=== PATIENT | male | born 1960 | race Caucasian/White ===

== ENCOUNTER → 2017-03-10 | Outpatient (CLI) | payer OTHER ==
[~2017-03-10] MED LIST: ASPIRIN325 PO; CRESTOR10 MG PO; HYDROCODONE-AP1 EAC6 PO; IBUPROFEN 800800 M1 PO; LISINOPRIL10 MG PO; METFORMIN HCL500 MG PO
== END ==
LOC: M.MRI 14:47
DX: S61.511A Laceration without foreign body of right wrist, initial encounter (principal); M67.431 Ganglion, right wrist; X58.XXXA Exposure to other specified factors, initial encounter; Y93.89 Activity, other specified; Y92.89 Other specified places as the place of occurrence of the external cause; Y99.8 Other external cause status

== ENCOUNTER → 2017-06-08 | Outpatient (CLI) | payer OTHER ==
[2017-06-08 09:52] LABS: HEMATOCRIT 42.1 % (42.0-52.0); HEMOGLOBIN 14.3 gm/dL (14.0-18.0); MCH 29.6 pg (26.0-34.0); MCV 87.2 fL (80.0-100.0); MPV 7.7 fl. (7.2-11.1); RBC 4.83 mil/uL (4.50-6.00); RDW-CV 14.2 % (10.5-14.5); WBC 10.7 thou/uL (4.0-11.0)
[2017-06-08 10:04] LABS: CHOLESTEROL 160 mg/dL (<200); HDL CHOLESTEROL 44 mg/dL (>40); LDL CHOLESTEROL 75 mg/dL (<100); TC:HDL 3.6 Ratio (Not establshd); TRIGLYCERIDE 208 mg/dL (<150); VLDL 42 mg/dL (<40)
[2017-06-08 10:05] LABS: SERUM ASSESSMENT Clear
== END ==
LOC: M.LAB 09:39
PROVIDERS: Internal Medicine Cardiovascular Disease
DX: E78.00 Pure hypercholesterolemia, unspecified (principal); I10 Essential (primary) hypertension

== ENCOUNTER → 2017-06-14 | Outpatient (CLI) | payer OTHER | LOC: M.ULTRA 07:56 | DX: I71.4 Abdominal aortic aneurysm, without rupture (principal) ==

== ENCOUNTER → 2017-10-11 | Outpatient (CLI) | payer OTHER | LOC: M.MRI 14:28 | DX: S83.241A Other tear of medial meniscus, current injury, right knee, initial encounter (principal); M25.461 Effusion, right knee; M94.261 Chondromalacia, right knee; X58.XXXA Exposure to other specified factors, initial encounter; Y93.89 Activity, other specified; Y92.89 Other specified places as the place of occurrence of the external cause; Y99.8 Other external cause status ==

== ENCOUNTER → 2018-02-16 | Outpatient (CLI) | payer OTHER ==
[2018-02-16 15:14] LABS: ABSOLUTE BASOPHILS 0.1 thou/uL (0.0-0.2); ABSOLUTE EOSINOPHILS 0.1 thou/uL (0.0-0.7); ABSOLUTE MONOCYTES 0.6 thou/uL (0.0-1.2); ABSOLUTE NEUTROPHILS 5.9 thou/uL (1.6-8.1); BASOPHILS 1.3 %; EOSINOPHILS 1.3 %; HEMATOCRIT 41.5 % (42.0-52.0); HEMOGLOBIN 13.8 gm/dL (14.0-18.0); LYMPHOCYTES 22.9 %; MCHC 33.1 g/dL (28.0-37.0); MCV 90.5 fL (80.0-100.0); MONOCYTES 6.7 %; MPV 7.7 fl. (7.2-11.1); NUCLEATED RBCS 0 /100WBC; PLATELET COUNT* 153 thou/uL (150-400); POLYS 67.8 %; RBC 4.59 mil/uL (4.50-6.00); RDW-CV 14.6 % (10.5-14.5); WBC 8.7 thou/uL (4.0-11.0)
[2018-02-16 15:39] LABS: ALBUMIN 3.8 g/dL (3.4-5.0); CALCIUM 8.8 mg/dL (8.5-10.1); CREATININE 1.4 mg/dL (0.6-1.3); POTASSIUM 3.9 mmol/L (3.5-5.1); TOTAL BILIRUBIN 0.3 mg/dL (<0.1-1.0); TOTAL PROTEIN 6.9 g/dL (6.4-8.2)
[2018-02-16 23:07] LABS: GLYCOHEMOGLOBIN (HGB A1C) 6.9 % (4.8-5.6)
== END ==
LOC: M.LAB 14:43
PROVIDERS: Family Medicine
DX: I11.9 Hypertensive heart disease without heart failure (principal); I25.10 Atherosclerotic heart disease of native coronary artery without angina pectoris; R73.09 Other abnormal glucose

== ENCOUNTER → 2018-05-05 | Outpatient (CLI) | payer OTHER | LOC: M.RAD 15:51 | DX: J18.9 Pneumonia, unspecified organism (principal) ==

== ENCOUNTER → 2018-12-21 | Outpatient (CLI) | payer OTHER ==
[~2018-12-21] MED LIST changes: +TRAMADOL 50 MG50 MG PO
[2018-12-21 08:04] LABS: ABSOLUTE EOSINOPHILS 0.1 thou/uL (0.0-0.7); ABSOLUTE LYMPHOCYTES 2.3 thou/uL (0.8-5.3); ABSOLUTE MONOCYTES 0.6 thou/uL (0.0-1.2); ABSOLUTE NEUTROPHILS 6.6 thou/uL (1.6-8.1); BASOPHILS 0.1 %; EOSINOPHILS 1.3 %; HEMATOCRIT 38.6 % (42.0-52.0); HEMOGLOBIN 12.9 gm/dL (14.0-18.0); LYMPHOCYTES 23.6 %; MCH 30.9 pg (26.0-34.0); MCHC 33.6 g/dL (28.0-37.0); MONOCYTES 6.2 %; MPV 7.5 fl. (7.2-11.1); NUCLEATED RBCS 0 /100WBC; PLATELET COUNT* 179 thou/uL (150-400); POLYS 68.8 %; RBC 4.19 mil/uL (4.50-6.00); RDW-CV 16.3 % (10.5-14.5); WBC 9.7 thou/uL (4.0-11.0)
[2018-12-21 08:30] LABS: ALBUMIN 3.6 g/dL (3.4-5.0); ALKALINE PHOSPHATASE 85 U/L (46-116); ANION GAP 8 mmol/L (7-16); BUN 22 mg/dL (7-18); CALCIUM 8.7 mg/dL (8.5-10.1); CHLORIDE 99 mmol/L (98-107); CHOLESTEROL 154 mg/dL (<200); CO2 28 mmol/L (21-32); CREATININE 1.2 mg/dL (0.6-1.3); GLUCOSE 127 mg/dL (70-99); HDL CHOLESTEROL 40 mg/dL (>40); LDL CHOLESTEROL 61 mg/dL (<100); POTASSIUM 4.2 mmol/L (3.5-5.1); SGOT 25 U/L (15-37); SGPT 33 U/L (30-65); SODIUM 135 mmol/L (136-145); TC:HDL 3.9 Ratio (Not establshd); TOTAL BILIRUBIN 0.4 mg/dL (<0.1-1.0); TOTAL PROTEIN 7.3 g/dL (6.4-8.2); TRIGLYCERIDE 266 mg/dL (<150); VLDL 53 mg/dL (<40)
[2018-12-21 08:32] LABS: SERUM ASSESSMENT Clear
[2018-12-21 23:10] LABS: GLYCOHEMOGLOBIN (HGB A1C) 5.9 % (4.8-5.6)
== END ==
LOC: M.LAB 07:42
PROVIDERS: Family Medicine
DX: E11.65 Type 2 diabetes mellitus with hyperglycemia (principal); I10 Essential (primary) hypertension; E78.2 Mixed hyperlipidemia

== ENCOUNTER 2019-01-05 14:13 | Emergency (ER) | payer OTHER ==
[~2019-01-05] VITALS: Ht 182.9 cm; Wt 136.1 kg
[~2019-01-05 14:13] MED LIST changes: -TRAMADOL 50 MG50 MG PO
[2019-01-05] MEDS ORDERED: TRAMADOL 50 MG50 MG PO (15:19)
[2019-01-05 15:39] VITALS: BP 128/56
== END 2019-01-05 15:40 | disposition home or self-care (01) ==
LOC: M.ERS 14:13
DX: M25.462 Effusion, left knee (principal); M25.562 Pain in left knee; R03.0 Elevated blood-pressure reading, without diagnosis of hypertension; Z98.890 Other specified postprocedural states; Z88.0 Allergy status to penicillin

== ENCOUNTER → 2019-01-12 | Outpatient (CLI) | payer OTHER ==
[~2019-01-12] MED LIST changes: +TRAMADOL 50 MG50 MG PO
== END ==
LOC: M.MRI 11:24
DX: S83.232A Complex tear of medial meniscus, current injury, left knee, initial encounter (principal); M17.12 Unilateral primary osteoarthritis, left knee; X58.XXXA Exposure to other specified factors, initial encounter; Y93.89 Activity, other specified; Y92.89 Other specified places as the place of occurrence of the external cause; Y99.8 Other external cause status

== ENCOUNTER → 2019-01-24 | Outpatient (CLI) | payer OTHER | LOC: M.LAB 04:39 | DX: E87.6 Hypokalemia (principal); I10 Essential (primary) hypertension; F32.9 Major depressive disorder, single episode, unspecified; E78.49 Other hyperlipidemia ==

== ENCOUNTER 2019-04-01 06:32 | Emergency (ER) | payer OTHER ==
[~2019-04-01] VITALS: Ht 182.9 cm; Wt 129.3 kg
[2019-04-01] MEDS ORDERED: ZPAK PO (07:54)
[2019-04-01] MEDS ORDERED: PREDNISONE 20 M20 M1 PO (07:54)
[2019-04-01 08:04] VITALS: BP 111/66
== END 2019-04-01 08:04 | disposition home or self-care (01) ==
LOC: M.ERS 06:32
DX: J98.01 Acute bronchospasm (principal); Z88.0 Allergy status to penicillin; Z90.89 Acquired absence of other organs

== ENCOUNTER 2019-05-10 13:50 | Inpatient (IN) | payer OTHER ==
[~2019-05-10] VITALS: Ht 182.9 cm; Wt 133.4 kg
--- NOTE | ~2019-05-10 | CON ---
[address] [address] CONSULTATION Name: BASIMELSA WASHINGTON Room: [address] IN M.R.#: [id number] Admission: 05/10/19 Attend Phys: Roula Reaves MD Discharge: Date of : 62 Report #: [id number] THIS REPORT FOR: //name// cc: Ayan Boykin Russell J. DO ~ THIS REPORT FOR: //name// CC: Roula Boykin DO DICTATED BY: Carmen Lao [facility] DATE OF SERVICE: 05/11/2019 Please note at the time of this dictation, the patient was seen and physically examined by myself. REASON FOR CONSULTATION: Nausea, vomiting, diarrhea, some abdominal discomfort that has been ongoing for about 3-4 weeks with about s60-baxyv weight loss. ALLERGIES: PENICILLIN. MEDICATIONS: From home include aspirin, lisinopril, Crestor. HISTORY OF PRESENT ILLNESS: This is a 59-year-old male who presented to the Emergency Room with ongoing nausea and vomiting associated with diarrhea that he would have up to about 6 episodes a day of both nausea, vomiting and the diarrhea. He has had a decreased appetite. He denies any bright red blood or coffee-ground emesis in his vomit and diarrhea. He denies any bright red blood or any melena at this time. He denies taking any NSAIDs on a regular basis as well. He states it has been just about every time he eats or drinks that he will have the nausea and vomiting as well as the diarrhea. He states this has been ongoing for about almost 3 weeks. He did have an abscess on his buttocks that was lanced and he was placed on Bactrim, but that all was started after his symptoms started. However, they did increase, so he stopped taking the Bactrim at that time, but his symptoms persisted and seemed to have gotten worse. The patient states he did have a colonoscopy. He thinks done over at [facility], do not have those records. He thinks he had some polyps and that was done about 4 years ago. The patient otherwise states he had been eating and drinking and doing fine up until about 3 weeks ago. He states his bowels were soft and formed on a daily basis and he had no nausea or vomiting at that time. The patient still does have his gallbladder as well. PAST MEDICAL HISTORY: Coronary artery disease, hyperlipidemia, COPD requiring oxygen at night, recent cyst removed [place] [address] CONSULTATION Name: ELSA STALLWORTH Room: [address] IN .R.#: [id number] Admission: 05/10/19 Attend Phys: Roula Reaves MD Discharge: Date of : 62 Report #: [id number] PAST SURGICAL HISTORY: He had intestinal surgery at age 5, right ankle fracture, nose fractures, bilateral knee arthroscopic surgery, coronary artery bypass surgery and abdominal aneurysm stent and a tonsillectomy. FAMILY HISTORY: Negative for any GI or female cancers. SOCIAL HISTORY: He does use alcohol, a couple of drinks several times a week and he does smoke a cigar. Denies any illegal drug use. 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 REVIEW OF SYSTEMS: Twelve-point review of systems is essentially negative except what is mentioned in the HPI. PHYSICAL EXAMINATION: VITAL SIGNS: Temperature 36.7, pulse 87, respirations 22, blood pressure 110/67. HEART: Regular rate and rhythm. LUNGS: Diminished, but clear. ABDOMEN: Soft, positive bowel sounds in all 4 quadrants, which is some very minimal tenderness noted in the epigastric to right upper quadrant area. LABORATORY DATA: Hemoglobin is 11.9, white count is 8.8, platelets 189. GFR is 28. CT of the abdomen and pelvis showed a contracted gallbladder, diverticulosis throughout and a ventral hernia that is fat containing that is nonobstructing. IMPRESSION: 1. Nausea and vomiting for 3 weeks. 2. Abdominal pain, intermittent. 3. Diarrhea up to 6 times a day for the last 3 weeks, weight loss about 10 pounds. 4. Chronic kidney disease. 5. History of colon polyps, last colon about 4 years ago at [facility], O2 at night. PLAN: 1. CCK-PIPIDA today. 2. If the above is negative, we will try and get an EGD on him later today with Dr. Lara. 3. Further recommendations to be made once the above testing [place] [address] CONSULTATION Name: ELSA STALLWORTH Room: [address] IN M.R.#: [id number] Admission: 05/10/19 Attend Phys: Roula Reaves MD Discharge: Date of : 62 Report #: [id number] Thank you for allowing us to participate in this patient's care. Please do not hesitate to call with any questions in regard to this consult. By: [phone] Lara MD /marco
[~2019-05-10 13:50] MED LIST changes: +PREDNISONE 20 M20 M1 PO; +ZPAK PO
[2019-05-10 14:00] VITALS: BP 107/64
[2019-05-10 14:09] LABS: URINE BILIRUBIN NEGATIVE (Negative); URINE BLOOD 1+ (Negative); URINE CLARITY CLEAR; URINE COLOR YELLOW; URINE GLUCOSE-RANDOM NEGATIVE (Negative); URINE KETONES NEGATIVE (Negative); URINE LEUKOCYTES-REFLEX NEGATIVE (Negative); URINE NITRITE-REFLEX NEGATIVE (Negative); URINE PROTEIN 1+ (Negative); URINE SPECIFIC GRAVITY >= 1.030 (1.005-1.030); URINE UROBILINOGEN 0.2 E.U./dl (0.2-1.0)
[2019-05-10 14:27] LABS: BACTERIA-REFLEX 1-9 Few /HPF (None Seen); CASTS None Seen /LPF (None Seen); SQUAMOUS 0-3 Few /LPF (0-3); URINE RBC 0-2 Rare /HPF (0-2); URINE WBC-REFLEX 0-5 Rare /HPF (0-5)
[2019-05-10 14:28] LABS: ABSOLUTE BASOPHILS 0.1 thou/uL (0.0-0.2); ABSOLUTE EOSINOPHILS 0.1 thou/uL (0.0-0.7); ABSOLUTE LYMPHOCYTES 2.8 thou/uL (0.8-5.3); ABSOLUTE MONOCYTES 0.8 thou/uL (0.0-1.2); ABSOLUTE NEUTROPHILS 7.9 thou/uL (1.6-8.1); BASOPHILS 1.2 %; EOSINOPHILS 1.2 %; HEMOGLOBIN 12.6 gm/dL (14.0-18.0); LYMPHOCYTES 23.8 %; MCH 30.6 pg (26.0-34.0); MONOCYTES 6.8 %; MPV 7.3 fl. (7.2-11.1); NUCLEATED RBCS 0 /100WBC; PLATELET COUNT* 214 thou/uL (150-400); RBC 4.11 mil/uL (4.50-6.00); WBC 11.8 thou/uL (4.0-11.0)
[2019-05-10 14:28] LABS: CRYSTALS None Seen /LPF (None Seen)
[2019-05-10 14:43] LABS: ALBUMIN 3.6 g/dL (3.4-5.0); CALCIUM 8.8 mg/dL (8.5-10.1); CREATININE 2.7 mg/dL (0.6-1.3); POTASSIUM 4.5 mmol/L (3.5-5.1); TOTAL BILIRUBIN 0.3 mg/dL (<0.1-1.0); TOTAL PROTEIN 7.4 g/dL (6.4-8.2)
[2019-05-10 14:51] LABS: INFLUENZA A ANTIGEN Negative (Negative); INFLUENZA B ANTIGEN Negative (Negative)
--- NOTE | 2019-05-10 16:53 | EKG ---
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: DENYS : 1960 Requested By: Srikanth Disla Order Number: [id number] MD: Rojelio Quiles Measurements Intervals [place] Rate: 86 P: -13 OR: 167 QRS: 2 QRSD: 105 T: 55 QT: 374 QTc: 448 Interpretive Statements Sinus rhythm Low voltage, precordial leads No previous ECG available for comparison Electronically Signed On 05-10-2019 16:52:09 BUSINESS DEVELOPMENT ANALYST by Rojelio Quiles [email or web address] <ELECTRONICALLY SIGNED> By: Rojelio Quiles MD, [facility] 05/10/19 1652 1414 1414 Rojelio Quiles MD, [facility] /EPI
[2019-05-10 20:50] VITALS: BP 91/53
[2019-05-10 21:06] VITALS: BP 94/53
[2019-05-11 00:16] VITALS: BP 109/53
[2019-05-11] MEDS ORDERED: CIALIS5 MG PO (00:40)
[2019-05-11 04:44] VITALS: BP 110/67
[2019-05-11 05:58] LABS: HEMATOCRIT 34.8 % (42.0-52.0); HEMOGLOBIN 11.8 gm/dL (14.0-18.0); MCH 30.9 pg (26.0-34.0); MCV 90.9 fL (80.0-100.0); RBC 3.83 mil/uL (4.50-6.00); RDW-CV 15.1 % (10.5-14.5); WBC 8.8 thou/uL (4.0-11.0)
[2019-05-11 06:14] LABS: ALBUMIN 3.2 g/dL (3.4-5.0); CALCIUM 8.4 mg/dL (8.5-10.1); CREATININE 2.4 mg/dL (0.6-1.3); POTASSIUM 4.6 mmol/L (3.5-5.1); TOTAL BILIRUBIN 0.2 mg/dL (<0.1-1.0); TOTAL PROTEIN 6.8 g/dL (6.4-8.2)
[2019-05-11 08:10] VITALS: BP 108/69
[2019-05-11 16:15] VITALS: BP 113/65
[2019-05-11 20:04] VITALS: BP 94/59
[2019-05-12] VITALS (7 sets, daily range): BP systolic 87–151; BP diastolic 45–81
[2019-05-12 10:10] LABS: HEMATOCRIT 34.9 % (42.0-52.0); HEMOGLOBIN 11.6 gm/dL (14.0-18.0); MCH 30.7 pg (26.0-34.0); MCHC 33.2 g/dL (28.0-37.0); MCV 92.5 fL (80.0-100.0); MPV 7.8 fl. (7.2-11.1); RBC 3.77 mil/uL (4.50-6.00); RDW-CV 14.7 % (10.5-14.5); WBC 10.8 thou/uL (4.0-11.0)
[2019-05-12 10:20] LABS: CALCIUM 8.5 mg/dL (8.5-10.1); CREATININE 2.2 mg/dL (0.6-1.3); POTASSIUM 4.7 mmol/L (3.5-5.1)
[2019-05-13 00:36] VITALS: BP 104/61
[2019-05-13 07:53] VITALS: BP 123/71
[2019-05-13 08:00] LABS: HEMATOCRIT 32.1 % (42.0-52.0); HEMOGLOBIN 10.7 gm/dL (14.0-18.0); MCH 30.8 pg (26.0-34.0); MCHC 33.3 g/dL (28.0-37.0); MCV 92.3 fL (80.0-100.0); MPV 7.4 fl. (7.2-11.1); RBC 3.48 mil/uL (4.50-6.00); RDW-CV 14.8 % (10.5-14.5); WBC 7.2 thou/uL (4.0-11.0)
[2019-05-13 08:33] LABS: CALCIUM 8.1 mg/dL (8.5-10.1); CREATININE 1.8 mg/dL (0.6-1.3); POTASSIUM 4.5 mmol/L (3.5-5.1)
[2019-05-13 12:12] VITALS: BP 137/92
[2019-05-13 16:00] VITALS: BP 155/92
[2019-05-13 20:00] VITALS: BP 136/85
[2019-05-13 21:00] VITALS: BP 136/85
[2019-05-14 04:41] LABS: HEMATOCRIT 31.4 % (42.0-52.0); HEMOGLOBIN 10.6 gm/dL (14.0-18.0); MCH 31.2 pg (26.0-34.0); MCHC 33.8 g/dL (28.0-37.0); MCV 92.5 fL (80.0-100.0); RBC 3.4 mil/uL (4.50-6.00); RDW-CV 15.5 % (10.5-14.5); WBC 8.5 thou/uL (4.0-11.0)
[2019-05-14 05:00] LABS: CALCIUM 8.2 mg/dL (8.5-10.1); CREATININE 1.5 mg/dL (0.6-1.3); MAGNESIUM 1.5 mg/dL (1.8-2.4); POTASSIUM 4.3 mmol/L (3.5-5.1)
[2019-05-14] MEDS ORDERED: PROTONIX40 M2 PO (08:29)
[2019-05-14] MEDS ORDERED: ZOFRAN ODT4 MG PO (09:11)
[2019-05-14] MEDS ORDERED: PANTOPRAZOLE SO40 M1 PO (09:12)
[2019-05-14 10:34] VITALS: BP 142/84
[2019-05-14 10:43] VITALS: BP 111/65
--- NOTE | 2019-05-15 16:07 | PATH ---
[facility] [address] [place] [address] PATHOLOGY RPT PROCEDURE Name: SONNY STALLWORTH Room: [address] IN M.R.#: [id number] Admission: 05/10/19 Date of : 62 Discharge: 05/14/19 Report #: [id number] Path Case #: [id number] [facility] Accession Number: [id number] . 01 Material submitted: . stomach - GASTRIC BIOPSIES FOR H-PYLORI . 01 Clinical history: . For H. pylori . 02 Diagnosis: Gastric biopsies: - Mild nonspecific chronic gastritis, negative for Helicobacter pylori organisms and dysplasia. (RICARDO:tita; 05/15/2019) S 05/15/2019 1354 Local . 02 Electronically signed: . Otto Cantu MD, Pathologist NPI- [id number] . 01 Gross description: . The specimen is received in formalin, labeled "Brown, Sonny, gastric biopsies" and consists of 4 fragments of pink-fountain tissue measuring between 0.2 x 0.2 cm and 0.5 x 0.3 cm which are entirely submitted in A1. (SDY; 05/12/2019) SYU/SYU 05/12/2019 1437 Local . 02 Pathologist provided ICD-10: K29.50 . 02 CPT . 384142, V49941 Specimen Comment: A courtesy copy of this report has been sent to [phone] Specimen Comment: [phone], Specimen Comment: Report sent to ,DR CHONG / DR DURAN Performed at: [address], [place], [place] [id number] MD Ayan Mortensen MD Phone: [phone] Performed at: 02 [facility] [address], [place], [place] [id number] MD Otto Cantu MD Phone: [phone]
== END 2019-05-14 11:00 | disposition home or self-care (01) | DRG 682 ==
LOC: M.ERS 13:50 → M.TBA-ER 16:38 → M.2W 16:38 → M.ORTHSURG 05-13 15:35
PROVIDERS: Family Medicine; ADMIT Internal Medicine
PROC: 0DB68ZX Excision of Stomach, Via Natural or Artificial Opening Endoscopic, Diagnostic (ICD-10-PCS; principal; 2019-05-11)
DX: N17.1 Acute kidney failure with acute cortical necrosis (principal); K56.2 Volvulus; R65.10 Systemic inflammatory response syndrome (SIRS) of non-infectious origin without acute organ dysfunction; N18.9 Chronic kidney disease, unspecified; F17.210 Nicotine dependence, cigarettes, uncomplicated; I95.9 Hypotension, unspecified; I25.10 Atherosclerotic heart disease of native coronary artery without angina pectoris; J44.9 Chronic obstructive pulmonary disease, unspecified; K29.70 Gastritis, unspecified, without bleeding; K26.9 Duodenal ulcer, unspecified as acute or chronic, without hemorrhage or perforation; Z88.0 Allergy status to penicillin; Z87.81 Personal history of (healed) traumatic fracture; Z95.1 Presence of aortocoronary bypass graft; Z86.010 Personal history of colon polyps; Z79.82 Long term (current) use of aspirin; Z79.899 Other long term (current) drug therapy

== ENCOUNTER 2019-06-15 09:47 | Inpatient (IN) | payer OTHER ==
[~2019-06-15] VITALS: Ht 182.9 cm; Wt 139.4 kg
[~2019-06-15 09:47] MED LIST changes: +ASPIR 8181 MG PO; -ASPIRIN325 PO; +CIALIS5 MG PO; +PANTOPRAZOLE SO40 M1 PO; +PROTONIX40 M2 PO; +ZOFRAN ODT4 MG PO
[2019-06-15 10:13] VITALS: BP 111/76
[2019-06-15] MEDS ORDERED: LISINOPRIL-HCT1 EAC2 PO (10:19)
[2019-06-15 10:44] LABS: HEMATOCRIT 34.9 % (42.0-52.0); HEMOGLOBIN 11.8 gm/dL (14.0-18.0); MCH 30.9 pg (26.0-34.0); MCHC 33.9 g/dL (28.0-37.0); MPV 7.9 fl. (7.2-11.1); RBC 3.84 mil/uL (4.50-6.00); RDW-CV 14.9 % (10.5-14.5); WBC 8.1 thou/uL (4.0-11.0)
[2019-06-15 10:55] LABS: APTT 32.2 Seconds (25.0-31.3); INR 1.1; PROTIME 11.6 Seconds (9.20-11.50)
[2019-06-15 11:00] LABS: ALBUMIN 3.4 g/dL (3.4-5.0); CALCIUM 8.4 mg/dL (8.5-10.1); CREATININE 1.9 mg/dL (0.6-1.3); POTASSIUM 4.3 mmol/L (3.5-5.1); TOTAL BILIRUBIN 0.3 mg/dL (<0.1-1.0); TOTAL PROTEIN 7.1 g/dL (6.4-8.2)
[2019-06-15 12:10] VITALS: BP 108/75
--- NOTE | 2019-06-15 12:10 | EKG ---
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
[2019-06-15 17:03] VITALS: BP 111/64
[2019-06-15 20:00] VITALS: BP 90/50
[2019-06-15 22:00] VITALS: BP 97/65
[2019-06-16] VITALS (7 sets, daily range): BP systolic 89–115; BP diastolic 43–64
--- NOTE | 2019-06-16 09:31 | EKG ---
[place] [address] ELECTROCARDIOGRAM REPORT Name: BASIMELSA PADMINI Room: [address] ADM IN M.R.#: [id number] Admission: 06/15/19 Attend Phys: Luis Horn, Discharge: Date of : 62 Date of Service: 06/16/19812 Report #: [id number] THIS REPORT FOR: //name// [facility] Test Date: 2019-06-16 Test Time: 08:13:07 Pat Name: ELSA STALLWORTH Department: Room: [address] Gender: M Wood Buffer: : 1960 Requested By: Luis oHrn Order Number: [id number] Reading MD: Rojelio Quiles Measurements Intervals [place] Rate: 65 P: -3 ME: 180 QRS: 16 QRSD: 120 T: 61 QT: 457 QTc: 476 Interpretive Statements Sinus rhythm low voltage Nonspecific intraventricular conduction delay Compared to ECG 06/15/2019 10:32:15 Electronically Signed On 06-16-2019 9:30:28 CDT by Rojelio Quiles [email or web address] <ELECTRONICALLY SIGNED> By: Rojelio Quiles MD, [facility] 06/16/1930 2 2 Rojelio Quiles MD, [facility] /EPI
[2019-06-17] VITALS: BP 87/50
[2019-06-17 04:59] VITALS: BP 81/42
[2019-06-17 08:00] VITALS: BP 99/64
[2019-06-17 10:07] VITALS: BP 88/54
[2019-06-17] MEDS ORDERED: SOTALOL80 MG PO (11:28)
[2019-06-17] MEDS ORDERED: FUROSEMIDE 20 M20 MG PO (11:30)
[2019-06-17] MEDS ORDERED: XARELTO20 MG PO (11:34)
--- NOTE | 2019-06-18 10:20 | D ---
[facility] [address] [place] [address] DISCHARGE SUMMARY Name: ELSA STALLWORTH Room: [address] IN M.R.#: [id number] Admission: 06/15/19 Attend Phys: Luis Horn MD Discharge: 06/17/19 Date of : 62 Report #: [id number] THIS REPORT FOR: //name// cc: Ayan Boykin Russell J. DO THIS REPORT FOR: //name// CC: Luis Boykin DO DATE OF SERVICE: 06/17/2019 DISCHARGE DIAGNOSES: 1. Paroxysmal atrial fibrillation. 2. Coronary artery disease. 3. Hypertension. 4. Hyperlipidemia. 5. History of an abdominal aortic aneurysm treated by stent placement. PROCEDURES: None. CONSULTATIONS: None. HISTORY OF PRESENT ILLNESS: The patient is a 59-year-old white male who was admitted for initiation of sotalol therapy. The patient has an extensive past medical history. He had coronary artery bypass surgery in 2007 at [facility]. Recently, he has been followed by my partner, Dr. Horn. He underwent placement of an abdominal aortic aneurysm stent graft about 5 years ago. Recently, he noticed occasional chest discomfort and fluttering in his heart. He was seen by Dr. Horn in the Cardiology Clinic on 05/22/2019. He wore a monitor that showed episodes of atrial fibrillation. He underwent a nuclear stress test showed ejection fraction 54% with evidence of previous inferior infarction, but no ischemia. He was electively admitted this time for initiation of sotalol therapy. He has had no bleeding or syncope. PAST MEDICAL HISTORY: Otherwise significant for no other surgical procedures. He does have a history of hypertension, hyperlipidemia, sleep apnea. MEDICATIONS: Include aspirin, Lasix as needed, lisinopril, HCT, Toprol, Crestor, Cialis as needed. PHYSICAL EXAMINATION: VITAL SIGNS: Blood pressure is 130/70, pulse is 80. CHEST: Clear to auscultation. CARDIAC: [place] [address] DISCHARGE SUMMARY Name: ELSA STALLWORTH Room: [address]#: [id number] Admission: 06/15/19 Attend Phys: Luis Horn MD Discharge: 06/17/19 Date of : 62 Report #: [id number] ABDOMEN: Soft. EXTREMITIES: Had trace edema. SKIN: Warm and dry. DIAGNOSTIC DATA: His ECG on admission showed a sinus rhythm with no QT prolongation. LABORATORY DATA: On admission, sodium 136, potassium 4.3, BUN 25, creatinine was 1.9. Liver function studies were normal. Creatinine clearance is 37. His white blood cell count 8.1, hemoglobin 11.8. HOSPITAL COURSE: The patient was admitted to monitored bed. He was started on sotalol 80 mg every 12 hours. He developed low blood pressure, was taken off of lisinopril. He was started on Xarelto for anticoagulation. He had no bleeding problems. At time of discharge, he had no significant complaints. At the time of discharge, his blood pressure is only 90/60 with pulse 70 and regular, afebrile. Followup ECG showed no significant prolongation of his QT interval. He was discharged on his home medications include aspirin, which was decreased to only 81 mg a day, Lasix 20 mg as needed for edema. He was taken off of lisinopril, HCTZ because of low blood pressure. He was switched from metoprolol to sotalol 80 mg every 12 hours. If his creatinine clearance remains less than 50, I would suggest decreasing sotalol to every 24 hours. He was to continue Crestor 40 mg a day. He has oxygen at bedtime. He was discharged to return to care of Dr. Ayan Boykin for routine medical care. He is scheduled to return to see my nurse practitioner in 1 week. He will see Dr. Horn in 8 weeks for followup. He is felt to have a good prognosis from cardiac standpoint. He was given a release to return to work in 2 days where he works here at [employer] in [employer]. <ELECTRONICALLY SIGNED> By: Rojelio Quiles MD, [facility] 06/18/19 1020 1056 [id number] Quiles MD, FACC /nt
== END 2019-06-17 11:59 | disposition home or self-care (01) | DRG 309 ==
LOC: M.2W 09:47
PROVIDERS: ADMIT Internal Medicine Cardiovascular Disease
DX: I48.0 Paroxysmal atrial fibrillation (principal); D68.59 Other primary thrombophilia; I25.10 Atherosclerotic heart disease of native coronary artery without angina pectoris; I10 Essential (primary) hypertension; E78.5 Hyperlipidemia, unspecified; G47.33 Obstructive sleep apnea (adult) (pediatric); Z79.899 Other long term (current) drug therapy

== ENCOUNTER → 2019-06-26 | Outpatient (CLI) | payer OTHER ==
[~2019-06-26] MED LIST changes: +FUROSEMIDE 20 M20 MG PO; +LISINOPRIL-HCT1 EAC2 PO; +SOTALOL80 MG PO; +XARELTO20 MG PO
== END ==
LOC: M.LAB 09:01
DX: Z11.59 Encounter for screening for other viral diseases (principal); Z20.828 Contact with and (suspected) exposure to other viral communicable diseases

== ENCOUNTER → 2019-06-29 | Outpatient (CLI) | payer OTHER ==
[2019-06-29 11:50] LABS: CALCIUM 8.2 mg/dL (8.5-10.1); CREATININE 1.3 mg/dL (0.6-1.3); POTASSIUM 4.3 mmol/L (3.5-5.1)
== END ==
LOC: M.LAB 11:05
PROVIDERS: Registered Nurse
DX: N28.9 Disorder of kidney and ureter, unspecified (principal); I25.10 Atherosclerotic heart disease of native coronary artery without angina pectoris

== ENCOUNTER 2019-07-06 10:15 | Observation (INO) | payer OTHER ==
[~2019-07-06] VITALS: Ht 182.9 cm; Wt 142.0 kg
[2019-07-06] VITALS (14 sets, daily range): BP systolic 96–150; BP diastolic 53–86
[~2019-07-06 10:15] MED LIST changes: -CRESTOR10 MG PO; +CRESTOR40 MG PO
[2019-07-06 10:44] LABS: HEMATOCRIT 37.4 % (42.0-52.0); HEMOGLOBIN 12.7 gm/dL (14.0-18.0); MCH 30.7 pg (26.0-34.0); MCHC 33.9 g/dL (28.0-37.0); MCV 90.7 fL (80.0-100.0); MPV 7.5 fl. (7.2-11.1); RBC 4.13 mil/uL (4.50-6.00); WBC 8.5 thou/uL (4.0-11.0)
[2019-07-06 10:54] LABS: APTT 25.7 Seconds (25.0-31.3); PROTIME 9.9 Seconds (9.20-11.50)
[2019-07-06 10:55] LABS: ANION GAP 8 mmol/L (7-16); BUN 25 mg/dL (7-18); CALCIUM 9.2 mg/dL (8.5-10.1); CHLORIDE 99 mmol/L (98-107); CO2 28 mmol/L (21-32); CREATININE 1.3 mg/dL (0.6-1.3); GLUCOSE 105 mg/dL (70-99); POTASSIUM 4.3 mmol/L (3.5-5.1); SODIUM 135 mmol/L (136-145)
[2019-07-06 11:00] LABS: ALBUMIN 3.7 g/dL (3.4-5.0); ALKALINE PHOSPHATASE 82 U/L (46-116); CHOLESTEROL 171 mg/dL (<200); HDL CHOLESTEROL 57 mg/dL (>40); LDL CHOLESTEROL 79 mg/dL (<100); SERUM ASSESSMENT Clear; SGOT 23 U/L (15-37); SGPT 27 U/L (30-65); TOTAL BILIRUBIN 0.3 mg/dL (<0.1-1.0); TOTAL PROTEIN 7.6 g/dL (6.4-8.2); TRIGLYCERIDE 175 mg/dL (<150); VLDL 35 mg/dL (<40)
[2019-07-06] MEDS ORDERED: LISINOPRIL-HCT1 EAC1 PO (11:21)
--- NOTE | 2019-07-06 14:00 | NUR ---
RECEIVED PT FROM CARDIAC TRAILER TRUCK DRIVER. VSS. AWAKE. C/O HEADACHE. REPORT RECEIVED FROM ROSAURA (TRAILER TRUCK DRIVER RN). RT GROIN SOFT, NO BLEEDING. SEE VS & POST CATH ASSESSMENT FLOWSHEET.
--- NOTE | 2019-07-06 15:40 | NUR ---
REPORTED TO FORMING MACHINE UPKEEP MECHANIC ASHLEY. PT TO BE ADMITTED TO TELEMETRY ROOM 230.
--- NOTE | 2019-07-06 16:05 | NUR ---
PT ADMITTED TO ROOM 230, TELEMETRY. ZEUS JEAN-BAPTISTE AT BEDSIDE TO RECEIVE PT. PT MOVED TO BED. RLE REMAINS STRAIGHT INSTRUCTED. CALL LIGHT IN REACH.
--- NOTE | 2019-07-06 16:30 | EKG ---
[place] [address] ELECTROCARDIOGRAM REPORT Name: ELSA STALLWORTH Room: [address]#: [id number] Admission: 07/06/19 Attend Phys: Luis Horn, Discharge: Date of : 62 Date of Service: 07/06/19 1033 Report #: [id number] THIS REPORT FOR: //name// [facility] Test Date: 2019-07-06 Test Time: 10:33:46 Pat Name: ELSA STALLWORTH Department: Room: [facility] Gender: M Exercise Instruct: : 1960 Requested By: Luis Horn Order Number: [id number] Kristin MD: Luis Horn Measurements Intervals [place] Rate: 83 P: -14 RI: 164 QRS: 13 QRSD: 108 T: 64 QT: 389 QTc: 457 Interpretive Statements Sinus rhythm Low voltage, precordial leads Compared to ECG 06/16/2019 08:13:07 Intraventricular conduction delay no longer present Electronically Signed On 07-06-2019 16:29:14 CDT by Luis Horn [email or web address] <ELECTRONICALLY SIGNED> By: Luis Horn MD, FACC 07/06/19 1629 1033 1033 Luis oHrn MD, FAC /EPI
--- NOTE | 2019-07-06 16:31 | EKG ---
[place] [address] ELECTROCARDIOGRAM REPORT Name: ELSA STALLWORTH Room: [address]#: [id number] Admission: 07/06/19 Attend Phys: Luis Horn, Discharge: Date of : 62 Date of Service: 07/06/19 1427 Report #: [id number] THIS REPORT FOR: //name// [facility] Test Date: 2019-07-06 Test Time: 14:27:07 Pat Name: ELSA STALLWORTH Department: Room: [facility] Gender: M Pelletizer: ERIBERTO : 1960 Requested By: Luis Horn Order Number: [id number] Kristin MD: Luis Horn Measurements Intervals [place] Rate: 78 P: -8 [place]: 177 QRS: 9 QRSD: 107 T: 58 QT: 411 QTc: 469 Interpretive Statements Sinus rhythm Low voltage, precordial leads Compared to ECG 06/16/2019 08:13:07 Intraventricular conduction delay no longer present Electronically Signed On 07-06-2019 16:30:04 CDT by Luis Horn [email or web address] <ELECTRONICALLY SIGNED> By: Luis Horn MD, FACC 07/06/19 1630 1427 1427 Luis Horn MD, [facility] /EPI
--- NOTE | 2019-07-06 17:32 | NUR ---
PT ADMITTED TO ROOM 230 VIA CART FROM PACU AT APPROX 1605. PT POST CATH, ACCESS INTO RT GROIN. SITE C/D/I W/ NO HEMATOMA. POST CARDIAC CATH ASSESSMENT CHARTED. ADMISSION ASSESSMENT AND HX COMPLETED, REFER TO CHARTING. PT ORIENTED TO ROOM AND CALL LIGHT. AT BEDSIDE. PT DENIES ANY PAIN OR SHORTNESS OF BREATH. TRACING SR ON THE COOK FRUIT. PT ON BEDREST UNTIL 1930.
[2019-07-07 00:08] VITALS: BP 104/46
[2019-07-07 04:26] VITALS: BP 84/41
[2019-07-07 04:44] LABS: HEMATOCRIT 35.7 % (42.0-52.0); HEMOGLOBIN 11.9 gm/dL (14.0-18.0); MCH 30.7 pg (26.0-34.0); MCHC 33.2 g/dL (28.0-37.0); MCV 92.3 fL (80.0-100.0); MPV 8.1 fl. (7.2-11.1); RBC 3.87 mil/uL (4.50-6.00); WBC 7.5 thou/uL (4.0-11.0)
[2019-07-07 04:59] LABS: ALBUMIN 3.3 g/dL (3.4-5.0); CALCIUM 8.3 mg/dL (8.5-10.1); CREATININE 1.2 mg/dL (0.6-1.3); TOTAL BILIRUBIN 0.4 mg/dL (<0.1-1.0); TOTAL PROTEIN 6.6 g/dL (6.4-8.2)
--- NOTE | 2019-07-07 05:24 | NUR ---
PT IS ABLE TO COMMUNICATE HIS NEEDS TO STAFF EFFECTIVELY. HE HAS DENIED THE NEED FOR PAIN MEDICATION UP TO THIS TIME. RIGHT GROIN CATH SITE C/D/I. PT UP AD LUKASZ AND STEADY, BP A LITTLE SOFT AT TIMES; ASYMPTOMATIC. LIKELY DISCHARGE TODAY.
[2019-07-07 08:00] VITALS: BP 127/87
[2019-07-07] MEDS ORDERED: EFFIENT10 MG PO (09:28)
--- NOTE | 2019-07-07 09:30 | EKG ---
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: : 1960 Requested By: Luis Horn Order Number: [id number] Reading MD: Jamal Redding Measurements Intervals [place] Rate: 77 P: 0 [place]: 180 QRS: 19 QRSD: 108 T: 81 QT: 418 QTc: 474 Interpretive Statements Sinus rhythm Low voltage, precordial leads Baseline wander in lead(s) I,II,aVR,V3 Compared to ECG 07/06/2019 14:27:07 No significant changes Electronically Signed On 07-07-2019 9:28:48 CDT by Jamal Redding [email or web address] <ELECTRONICALLY SIGNED> By: Jamal Redding MD, [facility] 07/07/19 0928 0407 0407 Jamal Redding MD, [facility] /EPI
[2019-07-07 09:59] VITALS: BP 129/72
--- NOTE | 2019-07-07 10:02 | CARD ---
[address] [address] CARDIAC CATH REPORT Name: ELSA STALLWORTH Room: [address] M.RLuis Alberto#: [id number] Admission: 07/06/19 Attend Phys: Luis Horn MD Discharge: Date of : 62 Report #: [id number] THIS REPORT FOR: //name// cc: Ayan Boykin Russell J. DO ~ APPROVED REPORT Study performed: 07/06/2019 10:38:24 Patient Details Patient Status: Out-Patient Room #: The patient is a 59 year-old male Event Personnel Luis Horn Scada Technician, Jamal Redding Mica Inspector, Rayray Barnett RN Certification Engineer, Lyla Ley RN Certification Engineer, Radhika Logan RTR Scrub, Catracho Sweet RTR Scrub, Nikki Lowery RTR Monitor Procedures Performed Art Access - R femoral artery, Left Heart Cath Coronaries, Bypass Grafts LHCCORCABG, MIRTHA Place w/wo Plasty Single Left Main , Hemostasis w/ Angioseal Indication Unstable angina Risk Factors Obesity, Hypercholesterolemia, Hypertension Previous Procedures/Diagnoses Previous CABG Admission/Lab Medications/Medications given during procedure Oxygen Nasal cannula 2 l per min, Lidocaine Subcut 18 ml, Midazolam (Versed) IV 1 mg, Fentanyl IV 50 mcg, Nitroglycerin SL 0.4 mg x 3, Angiomax IV bolus 21 ml, Angiomax Drip IV 48.05 ml per hr, Angiomax IV bolus 5 ml, Effient PO 60 mg Procedure Narrative The patient was brought electively to the Cardiac Catheterization Laboratory and was prepped and draped in a sterile manner. The right femoral was infiltrated with 2% Lidocaine subcutaneous anesthesia. A 6F [place] sheath was inserted into the right femoral artery. Coronary angiography was performed [place] [address] CARDIAC CATH REPORT Name: ELSA STALLWORTH Room: [address]#: [id number] Admission: 07/06/19 Attend Phys: Luis Horn MD Discharge: Date of : 62 Report #: [id number] catheters. The right coronary system was accessed and visualized with a 6F JR4 catheter. The left coronary system was accessed and visualized with a 6F JL4 catheter. The left ventricle was accessed and visualized with a 6F Pigtail catheter. Left ventricular/Aortic Valve gradient assessed via catheter pullback. Left ventriculogram was performed in ROMO projection. Pre-demployment femoral angiogram was performed . Closure device was deployed with a 6 Fr Angioseal STS. The patient tolerated the procedure well and there were no complications associated with the procedure. There was no hematoma. The Saphenous Vein grafts were visualized with a 6F JR4 and 6F LCB catheters. The MANCILLA graft was visualized with a 6F JR4 catheter. Intraoperative Conscious Sedation Sedation start time: 11:45 Case end Time: 13:33 Fentanyl 50 mcg Versed 1 mg Fluoro Time: 43.6 minutes Dose: DAP 61328 cGycm2 7736 mGy Contrast Type and Amount: Visipaque 215 ml [place] Artery Percent Stenosis #1 atretic MANCILLA #2 widely patent saphenous vein graft to the LAD with good filling distally and 80% stenosis of the retrogradely filled mid LAD #3 widely patent saphenous vein graft to the distal circumflex with collateral filling of the distal right coronary artery Diagnostic Cath Left Main 75% distal stenosis LAD 100% mid vessel occlusion with faint retrograde opacification evidencing a patent graft to the more distal LAD Circumflex 100% proximal occlusion Right Coronary Dominant vessel with 50% proximal narrowing 75% mid vessel narrowing and perfusion of a posterior descending branch. The other more distal branch of the right coronary artery are occluded. Left Ventriculography The left ventricle is mildly dilated in size with normal contractility. The left ventricular ejection fraction is estimated to be 50-55%. Left ventricular wall motion abnormalities are not present. There [place] [address] CARDIAC CATH REPORT Name: ELSA STALLWORTH Room: [address] M.R.#: [id number] Admission: 07/06/19 Attend Phys: Luis Horn MD Discharge: Date of : 62 Report #: [id number] Hemodynamics The aortic pressure is 121/69 mmHg with a mean of 92 mmHg. The left ventricular pressure is 126/3 mmHg with a mean of mmHg. The left ventricular end diastolic pressure is 31 mmHg. PCI Technique Lesion Anticoagulation was achieved with Angiomax. Patient was preloaded with Angiomax IV bolus 21 ml. Percutaneous coronary intervention was performed on the Left Main Coronary Artery. The lesion stenosis prior to intervention was 75% with MARIN 3 flow. A 6FR LAUNCHER EBU 4.0 Guide Catheter was used to engage the left main ostium. A BMW 190cm Interventional Guidewire was used to cross the lesion. BALLOON DILATION A Balloon catheter NC Euphora 2.75x8 was inserted and inflated up to 20.00atm for 23seconds. STENT DEPLOYMENT A drug-eluting stent Xience Alondra 3.25X8mm was inserted and inflated up to 14.00atm for 16seconds. Additional Inflation: 18.00atm for 14seconds. Additional Inflation: 20.00atm for 12seconds. Final angiography reveals 10 % stenosis with MARIN 3 flow. Conclusion #1 severe coronary artery disease characterized by following: A 75% distal left main artery narrowing B1 100% mid LAD occlusion with faint retrograde filling reflecting a patent graft to the more distal LAD C total occlusion of the proximal circumflex D 50% proximal and 75% mid right coronary narrowing with perfusion of a modest size posterior descending branch; the remaining distal right coronary branches are occluded #2 graft study characterized by the following: A widely patent saphenous vein graft to the mid LAD with good filling distally and 80% stenosis of the retrogradely filled mid LAD B widely patent vein graft to the distal [place] [address] CARDIAC CATH REPORT Name: ELSA STALLWORTH Room: [address] M.R.#: [id number] Admission: 07/06/19 Attend Phys: Luis Horn MD Discharge: Date of : 62 Report #: [id number] from the circumflex to the distal right coronary artery #3 low normal global left ventricular systolic function, estimate ejection fraction 50-55% without segmental wall motion abnormalities #4 significant elevation of left ventricular end-diastolic pressure rest #5 successful PCI with deployment of a drug-eluting stent at the site of 75% distal left main coronary stenosis with 10% residual narrowing and MARIN-3 flow to the distal circulation Recommendations Cardiac Risk Reduction Program Aggressive Medical Therapy Medications Administered Aspirin (any) Prasugrel Diagnostic Cath Approved by: Luis Horn MD Date/Time: 07/07/2019 09:54:34 <ELECTRONICALLY SIGNED> By: Jamal Redding MD, FACC 07/07/19 1000 1000 1000Joleonela Redding MD, FACC /INF
[2019-07-07] MEDS ORDERED: NITROSTAT0.4 M1 SUBLING (10:52)
[2019-07-07 11:10] VITALS: BP 129/72
--- NOTE | 2019-07-07 16:33 | CON ---
[address] [address] CONSULTATION Name: ELSA STALLWORTH Room: [address] Debra Esparza#: [id number] Admission: 07/06/19 Attend Phys: Luis Horn MD Discharge: 07/07/19 Date of : 62 Report #: [id number] THIS REPORT FOR: //name// cc: Ayan Boykin Russell J. DO THIS REPORT FOR: //name// CC: Dr. Alonzo Boykin DISCHARGE DIAGNOSES: 1. Coronary artery disease with progressive/unstable angina. 2. Hyperlipidemia. PROCEDURES DURING THE HOSPITALIZATION: 1. Left heart catheterization. 2. Left ventriculogram. 3. Coronary angiography. 4. Percutaneous coronary intervention with drug-eluting stent placement to the left main coronary artery. DISCHARGE MEDICATIONS: 1. Effient 10 mg daily. 2. Crestor 40 mg daily. 3. Xarelto 20 mg daily. 4. Lisinopril/hydrochlorothiazide 20/12.5 one tablet daily. HOSPITAL COURSE: The patient was brought to the cardiac catheterization lab for angiography after complaints of progressive dyspnea and chest discomfort. Angiography revealed 80% left main. He had had previous bypass grafting with saphenous vein graft to the LAD, first and second obtuse marginal branches. The patient underwent drug-eluting stent placement to the left main coronary artery as it was felt that the proximal vessels were not well perfused. The patient tolerated the procedure well without complication. The patient is being discharged uneventfully. DISPOSITION: Follow up with Cardiology in the next 2 weeks. <ELECTRONICALLY SIGNED> By: Luis Horn MD, FACC 07/07/19 1633 0932 [id number] Horn MD, FACC /nt
== END 2019-07-07 11:10 | disposition home or self-care (01) ==
LOC: M.CL 10:15 → M.2W 13:50 → M.TBA-CV 13:50 → M.2W 16:05
PROVIDERS: ADMIT Internal Medicine Cardiovascular Disease
DX: I25.110 Atherosclerotic heart disease of native coronary artery with unstable angina pectoris (principal); E78.5 Hyperlipidemia, unspecified; E66.9 Obesity, unspecified; E78.00 Pure hypercholesterolemia, unspecified; I10 Essential (primary) hypertension; Z95.1 Presence of aortocoronary bypass graft

== ENCOUNTER 2019-09-01 10:16 | Inpatient (IN) | payer OTHER ==
[~2019-09-01] VITALS: Ht 182.9 cm; Wt 137.9 kg
[~2019-09-01 10:16] MED LIST changes: +EFFIENT10 MG PO; +LISINOPRIL-HCT1 EAC1 PO
[2019-09-01 10:52] LABS: ABSOLUTE BASOPHILS 0.1 thou/uL (0.0-0.2); ABSOLUTE LYMPHOCYTES 0.9 thou/uL (0.8-5.3); ABSOLUTE MONOCYTES 0.7 thou/uL (0.0-1.2); ABSOLUTE NEUTROPHILS 7.4 thou/uL (1.6-8.1); BASOPHILS 0.8 %; EOSINOPHILS 0.1 %; HEMATOCRIT 37.5 % (42.0-52.0); HEMOGLOBIN 12.6 gm/dL (14.0-18.0); LYMPHOCYTES 9.8 %; MCH 30.5 pg (26.0-34.0); MCHC 33.6 g/dL (28.0-37.0); MCV 90.8 fL (80.0-100.0); MONOCYTES 7.9 %; NUCLEATED RBCS 0 /100WBC; PLATELET COUNT* 152 thou/uL (150-400); POLYS 81.4 %; RBC 4.13 mil/uL (4.50-6.00); RDW-CV 14.8 % (10.5-14.5); WBC 9.1 thou/uL (4.0-11.0)
[2019-09-01 11:03] LABS: APTT 36.2 Seconds (25.0-31.3); CALCIUM 8.5 mg/dL (8.5-10.1); CREATININE 1.2 mg/dL (0.6-1.3); INR 1.2; POTASSIUM 3.7 mmol/L (3.5-5.1); PROTIME 12.8 Seconds (9.20-11.50)
[2019-09-01 11:13] LABS: ALBUMIN 3.4 g/dL (3.4-5.0); MAGNESIUM 1.5 mg/dL (1.8-2.4); TOTAL BILIRUBIN 0.6 mg/dL (<0.1-1.0); TOTAL PROTEIN 7.4 g/dL (6.4-8.2)
[2019-09-01 15:00] VITALS: BP 108/60
--- NOTE | 2019-09-01 15:44 | EKG ---
[place] [address] ELECTROCARDIOGRAM REPORT Name: SONNY STALLWORTH Room: [address] IN ..#: [id number] Admission: 09/01/19 Attend Phys: Sonny Dasilva Discharge: Date of : 62 Date of Service: 09/01/19 1022 Report #: [id number] THIS REPORT FOR: //name// [facility] ED Test Date: 2019-09-01 Test Time: 10:22:36 Pat Name: SONNY STALLWORTH Department: Room: 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1960 Requested By: Saul Landon Order Number: [id number] MD: Jamal Redding Measurements Intervals [place] Rate: 107 P: 43 WV: 150 QRS: 26 QRSD: 104 T: 79 QT: 328 QTc: 438 Interpretive Statements Sinus tachycardia Low voltage, precordial leads Compared to ECG 07/07/2019 04:07:25 Sinus rate has increased Electronically Signed On 09-01-2019 15:44:04 CDT by Jmaal Redding [email or web address] <ELECTRONICALLY SIGNED> By: Jamal Redding MD, FACC 09/01/19 1544 1022 1022 Jamal Redding MD, LOCATED WITHIN [facility] /EPI
[2019-09-01 15:52] VITALS: BP 114/71
--- NOTE | 2019-09-01 16:02 | NUR ---
RECIEVED REPORT FROM TI RN IN ER OF EXPECTED ADMISSION AT 1445- DX: PNA- PT ARRIVED TO UNIT VIA BED TO ROOM 230 AT 1520- STORAGE BATTERY INSPECTOR IN PLACE ORDERED, TRACING SR-PT A&O X4- CONT OF BOWEL AND BLADDER- UP AD-LUKASZ IN ROOM, STEADY GAIT NOTED- COURSE/RHONCHI WITH WITH AUDIBLE WHEEZES, LABORED BREATHING-PT REPORTS NON-PRODUCTIVE COUGH- VS 98.4 22 114/71 101 94% ON 2L VIA NC- ABD SOFT/OBESE/NON-TENDER, BS X4 QUADS- LAST BM REPORTED THIS AM- 2+ BLE EDEMA NOTED- MG NOTED AT 1.5, AND IS CURRNELTY BEING REPLACED PER PROTOCOL-IV NOTED TO RIGHT AC INTACT AND SL-PT DENIES ANY OPEN AREAS/SOARS- PT DENIES ANY C/O PAIN AT THIS TIME- CALL LIGHT AND PERSONAL BELONGINGS WITH IN REACH- PT MAKES NEEDS KNOWN- ALL NEEDS MET AT THIS TIME-WCTM
[2019-09-01 17:36] LABS: URINE BILIRUBIN NEGATIVE (Negative); URINE BLOOD TRACE (Negative); URINE CLARITY CLEAR; URINE COLOR YELLOW; URINE GLUCOSE-RANDOM NEGATIVE (Negative); URINE KETONES NEGATIVE (Negative); URINE LEUKOCYTES-REFLEX NEGATIVE (Negative); URINE NITRITE-REFLEX NEGATIVE (Negative); URINE PROTEIN 1+ (Negative); URINE UROBILINOGEN 0.2 E.U./dl (0.2-1.0)
[2019-09-01 20:00] VITALS: BP 101/67
[2019-09-02] VITALS (7 sets, daily range): BP systolic 85–118; BP diastolic 45–66
[2019-09-02 04:55] LABS: ABSOLUTE LYMPHOCYTES 0.8 thou/uL (0.8-5.3); ABSOLUTE MONOCYTES 0.5 thou/uL (0.0-1.2); ABSOLUTE NEUTROPHILS 6.9 thou/uL (1.6-8.1); BASOPHILS 0.5 %; EOSINOPHILS 0.1 %; HEMATOCRIT 36.6 % (42.0-52.0); HEMOGLOBIN 12.3 gm/dL (14.0-18.0); LYMPHOCYTES 9.8 %; MCH 30.6 pg (26.0-34.0); MCHC 33.6 g/dL (28.0-37.0); MCV 90.9 fL (80.0-100.0); MONOCYTES 6.5 %; MPV 7.7 fl. (7.2-11.1); NUCLEATED RBCS 0 /100WBC; PLATELET COUNT* 120 thou/uL (150-400); POLYS 83.1 %; RBC 4.02 mil/uL (4.50-6.00); RDW-CV 14.8 % (10.5-14.5); WBC 8.3 thou/uL (4.0-11.0)
[2019-09-02 05:10] LABS: CALCIUM 8.2 mg/dL (8.5-10.1); CREATININE 1.5 mg/dL (0.6-1.3)
--- NOTE | 2019-09-02 05:19 | NUR ---
ASSUMED PT CARE AT APPROX 1930. PT IS AWAKE AND ORIENTED X4. PT IS TRACING SR/ST ON THE SHAPER SETTER. PT REMAINED SOA, spo2 REMAINED IN THE LOW 90's WITH 2L OF O2/NC. PRN BREATHING TX PER RT. Tmax= 103.1, REPEAT T=98.9 AFTER TYLENOL. PT IS CLOSELY MONITORED. CALL LIGHT WITHIN REACH. HOURLY ROUNDING DONE FOR PT SAFETY.
--- NOTE | 2019-09-02 05:23 | NUR ---
ASSUMED PT CARE AT APPROX 1930. PT IS AWAKE AND ORIENTED X4. PT IS TRACING SR/ST ON THE DIRECTOR ENTERPRISE SALES. PT REMAINED SOA, spo2 REMAINED IN THE LOW 90's WITH 2L OF O2/NC. PRN BREATHING TX PER RT. Tmax= 103.1, REPEAT T=98.9 AFTER TYLENOL. PT IS CLOSELY MONITORED. CALL LIGHT WITHIN REACH. HOURLY ROUNDING DONE FOR PT SAFETY.
--- NOTE | 2019-09-02 08:59 | NUR ---
ASSUMED CARE OF PT THIS AM AROUND 0715- REGIONAL REH[facility]ILITATION DIRECTOR IN PLACE ORDERED, TRACING SR- UPON ASSESSMENT PT NOTED TO BE RESTING IN BED, EYES CLOSED- PT A&O X 4- CONT OF B/B- UP AD-LUKASZ IN ROOM, STEADY GAIT NOTED- COURSE/RHONCHI WITH WHEEZING NOTED- DYSPNEA NOTED- TEMP NOTED AT 101.0 PER AUX, PRN TYLENOL GIVEN AT 0819- BP NOTED AT 95/55, SCHEDULED LISINOPRIL HELD THIS AM- O2 SAT 94% ON 2L VIA NC- ABD SOFT/OBESE/NON-TENDER, BS X4 QUADS- LAST BM REPORTED 09/01/19- IV NOTED TO RIGHT AC INTACT, IVF INFUSSING; IV ABT GIVEN THIS AM PRESCRIBED-CALL LIGHT AND PERSONAL BELONGINGS WITH IN REACH- PT MAKES NEEDS KNOWN- ALL NEEDS MET AT THIS TIME-WCTM
[2019-09-03] VITALS: BP 97/57
[2019-09-03 03:50] VITALS: BP 118/59
[2019-09-03 04:49] LABS: HEMATOCRIT 33.9 % (42.0-52.0); HEMOGLOBIN 11.4 gm/dL (14.0-18.0); MCH 30.7 pg (26.0-34.0); MCHC 33.7 g/dL (28.0-37.0); MCV 91.2 fL (80.0-100.0); MPV 8.4 fl. (7.2-11.1); NUCLEATED RBCS 0 /100WBC; PLATELET COUNT* 136 thou/uL (150-400); RBC 3.72 mil/uL (4.50-6.00); WBC 7.9 thou/uL (4.0-11.0)
--- NOTE | 2019-09-03 07:07 | NUR ---
PT A+O X4. AMBULATED WITH STEADY GAIT AROUND THE UNIT LAST NIGHT. FLUIDS REFUSED. PT HAD 6 BEAT RUN VTACH X1 AFTER RETURNING TO ROOM AFTER WALK. NO C/O PAIN. CONGESTED COUGH. CALL LIGHT IN REACH. HOURLY ROUNDING FOR SAFETY.
[2019-09-03 07:14] LABS: ABSOLUTE BASOPHILS 0.1 thou/uL (0.0-0.2); ABSOLUTE LYMPHOCYTES 1.4 thou/uL (0.8-5.3); ABSOLUTE MONOCYTES 0.6 thou/uL (0.0-1.2); ABSOLUTE NEUTROPHILS 5.8 thou/uL (1.6-8.1)
[2019-09-03 07:16] LABS: ANISOCYTOSIS 1+; PLATELET ESTIMATE DECREASED
[2019-09-03 07:19] LABS: MICROCYTES 1+
[2019-09-03 07:20] LABS: HYPOCHROMASIA Occasional
[2019-09-03 07:30] VITALS: BP 119/59
--- NOTE | 2019-09-03 07:59 | NUR ---
ASSUMED CARE OF PT THIS AM AROUND 714- HARVEST CREW SUPERVISOR IN PLACE ORDERED, TRACING SR- UPON ASSESSMENT PT NOTED TO BE UP SITTING ON SIDE OF BED- PT A&O X4- CONT OF B/B- UP AD-LUKASZ IN ROOM, STEADY GAIT NOTED-COURSE RHONCHI WITH WHEEZING AND CRACKLES TO BASES-LABORED BREATHING [id number] COUGH NOTED- VSS, O2 SAT 94% ON 3L VIA NC- ABD SOFT/OBESE/NON-TENDER, BS X4 QUADS- LAST BM REPORTED 09/02/19- IV NOTED TO LEFT WRIST INTACT AND SL-REDDISH/PURPLE RASH CONTINUES TO FACE AND NECK THIS AM- PT DENIES ANY C/O PAIN/DISCOMFORT AT THIS TIME-CALL LIGHT AND PERSONAL BELONGINGS WITH IN REACH- ALL NEEDS MET AT THIS TIME-WCTM
[2019-09-03 08:43] VITALS: BP 119/59
[2019-09-03] MEDS ORDERED: MUCINEX600 MG PO (10:38)
[2019-09-03] MEDS ORDERED: CEFDINIR300 MG PO (10:38)
[2019-09-03] MEDS ORDERED: PREDNISONE 10 M10 MG PO (10:38)
[2019-09-03] MEDS ORDERED: AZITHROMYCIN 2250 MG PO (10:38)
[2019-09-03] MEDS ORDERED: NITROSTAT0.4 M1 SUBLING (11:00)
== END 2019-09-03 15:20 | disposition home or self-care (01) | DRG 178 ==
LOC: M.ERS 10:16 → M.TBA-ER 12:08 → M.2W 15:30
PROVIDERS: Emergency Medicine Emergency Medical Services; ADMIT Internal Medicine; ATTEND Internal Medicine
DX: J15.6 Pneumonia due to other Gram-negative bacteria (principal); R65.10 Systemic inflammatory response syndrome (SIRS) of non-infectious origin without acute organ dysfunction; I25.10 Atherosclerotic heart disease of native coronary artery without angina pectoris; E78.5 Hyperlipidemia, unspecified; R50.9 Fever, unspecified; Z20.828 Contact with and (suspected) exposure to other viral communicable diseases; R07.81 Pleurodynia; J98.01 Acute bronchospasm; Z95.1 Presence of aortocoronary bypass graft; Z99.81 Dependence on supplemental oxygen; Z95.5 Presence of coronary angioplasty implant and graft; Z90.89 Acquired absence of other organs; Z79.899 Other long term (current) drug therapy; Z88.0 Allergy status to penicillin; Z87.01 Personal history of pneumonia (recurrent); Z95.828 Presence of other vascular implants and grafts

== ENCOUNTER → 2019-09-13 | Outpatient (CLI) | payer OTHER ==
[~2019-09-13] MED LIST changes: +AZITHROMYCIN 2250 MG PO; +CEFDINIR300 MG PO; +MUCINEX600 MG PO; +NITROSTAT0.4 M1 SUBLING; +PREDNISONE 10 M10 MG PO
== END ==
LOC: M.RAD 12:19
PROVIDERS: ATTEND Family Medicine
DX: R91.8 Other nonspecific abnormal finding of lung field (principal); R06.02 Shortness of breath; Z20.828 Contact with and (suspected) exposure to other viral communicable diseases

== ENCOUNTER 2019-10-03 11:42 | Emergency (ER) | payer OTHER ==
[~2019-10-03] VITALS: Ht 182.9 cm; Wt 131.5 kg
[2019-10-03] MEDS ORDERED: PEPCID40 MG PO (11:54)
[2019-10-03 13:02] LABS: ABSOLUTE BASOPHILS 0.1 thou/uL (0.0-0.2); ABSOLUTE EOSINOPHILS 0.2 thou/uL (0.0-0.7); ABSOLUTE LYMPHOCYTES 1.8 thou/uL (0.8-5.3); ABSOLUTE MONOCYTES 0.5 thou/uL (0.0-1.2); ABSOLUTE NEUTROPHILS 5.9 thou/uL (1.6-8.1); BASOPHILS 1.3 %; EOSINOPHILS 1.8 %; HEMATOCRIT 35.9 % (42.0-52.0); HEMOGLOBIN 12.3 gm/dL (14.0-18.0); LYMPHOCYTES 21.3 %; MCH 29.7 pg (26.0-34.0); MCHC 34.2 g/dL (28.0-37.0); MCV 86.9 fL (80.0-100.0); MPV 7.3 fl. (7.2-11.1); NUCLEATED RBCS 0 /100WBC; PLATELET COUNT* 178 thou/uL (150-400); POLYS 69.6 %; RBC 4.13 mil/uL (4.50-6.00); RDW-CV 14.4 % (10.5-14.5); WBC 8.5 thou/uL (4.0-11.0)
[2019-10-03 13:10] LABS: CALCIUM 8.6 mg/dL (8.5-10.1); CREATININE 2.2 mg/dL (0.6-1.3); POTASSIUM 3.7 mmol/L (3.5-5.1)
[2019-10-03 13:14] LABS: ALBUMIN 3.4 g/dL (3.4-5.0); TOTAL BILIRUBIN 0.4 mg/dL (<0.1-1.0); TOTAL PROTEIN 7.2 g/dL (6.4-8.2)
[2019-10-03] MEDS ORDERED: NORCO 5-325 TA1 EAC2 PO (14:11)
[2019-10-03 14:19] VITALS: BP 130/90
--- NOTE | 2019-10-03 16:07 | EKG ---
[place] [address] ELECTROCARDIOGRAM REPORT Name: ELSA STALLWORTH Room: [facility]#: [id number] Admission: 10/03/19 Attend Phys: Discharge: 10/03/19 Date of : 62 Date of Service: 10/03/19 1156 Report #: [id number] THIS REPORT FOR: //name// [facility] ED Test Date: 2019-10-03 Test Time: 11:56:48 Pat Name: ELSA STALLWORTH Department: Room: Gender: Visual Basic .Net Developer: [facility] : 1960 Requested By: Tato Arce Order Number: [id number] Kristin MD: Jamal Redding Measurements Intervals [place] Rate: 91 P: 46 OK: 152 QRS: 10 QRSD: 116 T: 123 QT: 348 QTc: 429 Interpretive Statements Sinus rhythm Probable left atrial enlargement Nonspecific intraventricular conduction delay Low voltage, precordial leads Nonspecific repol abnormality, lateral leads Baseline wander in lead(s) V1,V2 Compared to ECG 09/01/2019 10:22:36 Intraventricular conduction delay now present Early repolarization now present Sinus tachycardia no longer present Electronically Signed On 10-03-2019 16:07:33 CDT by Jamal Redding [email or web address] <ELECTRONICALLY SIGNED> By: Jamal Redding MD, [facility] 10/03/19 1607 1156 1156 Jamal Redding MD, [facility] /EPI
== END 2019-10-03 14:19 | disposition home or self-care (01) ==
LOC: M.ERS 11:42
PROVIDERS: Physician Assistant
DX: R10.12 Left upper quadrant pain (principal); R07.81 Pleurodynia; F17.210 Nicotine dependence, cigarettes, uncomplicated; Z88.0 Allergy status to penicillin; Z90.89 Acquired absence of other organs; Z95.5 Presence of coronary angioplasty implant and graft

== ENCOUNTER → 2020-01-26 | Outpatient (CLI) | payer OTHER ==
[~2020-01-26] MED LIST changes: +NORCO 5-325 TA1 EAC2 PO; +PEPCID40 MG PO
== END ==
LOC: M.CT 14:00
PROVIDERS: ATTEND Pediatrics
DX: I25.10 Atherosclerotic heart disease of native coronary artery without angina pectoris (principal); J44.1 Chronic obstructive pulmonary disease with (acute) exacerbation; R05 Cough; J69.0 Pneumonitis due to inhalation of food and vomit

== ENCOUNTER → 2020-07-05 | Outpatient (CLI) | payer OTHER ==
[2020-07-05 09:12] LABS: ABSOLUTE BASOPHILS 0.1 thou/uL (0.0-0.2); ABSOLUTE EOSINOPHILS 0.1 thou/uL (0.0-0.7); ABSOLUTE MONOCYTES 0.6 thou/uL (0.0-1.2); ABSOLUTE NEUTROPHILS 6.6 thou/uL (1.6-8.1); BASOPHILS 0.9 %; EOSINOPHILS 1.4 %; HEMATOCRIT 41.7 % (42.0-52.0); HEMOGLOBIN 13.7 gm/dL (14.0-18.0); LYMPHOCYTES 21.2 %; MCH 30.2 pg (26.0-34.0); MCHC 32.9 g/dL (28.0-37.0); MCV 91.7 fL (80.0-100.0); MONOCYTES 6.7 %; MPV 7.3 fl. (7.2-11.1); NUCLEATED RBCS 0 /100WBC; PLATELET COUNT* 224 thou/uL (150-400); POLYS 69.8 %; RBC 4.55 mil/uL (4.50-6.00); RDW-CV 14.8 % (10.5-14.5); WBC 9.5 thou/uL (4.0-11.0)
[2020-07-05 09:21] LABS: ALBUMIN 3.6 g/dL (3.4-5.0); CALCIUM 8.8 mg/dL (8.5-10.1); CREATININE 1.3 mg/dL (0.6-1.3); POTASSIUM 4.2 mmol/L (3.5-5.1); TOTAL BILIRUBIN 0.4 mg/dL (<0.1-1.0); TOTAL PROTEIN 7.8 g/dL (6.4-8.2)
== END | disposition home or self-care (01) ==
LOC: M.LAB 08:48
PROVIDERS: ATTEND Family Medicine
DX: Z00.01 Encounter for general adult medical examination with abnormal findings (principal); E11.65 Type 2 diabetes mellitus with hyperglycemia; I10 Essential (primary) hypertension; I25.10 Atherosclerotic heart disease of native coronary artery without angina pectoris